=== PATIENT | female | born 1975 ===

== ENCOUNTER 2017-12-08 12:09 | Emergency (ER) | payer OTHER ==
[2017-12-08 12:16] VITALS: RESP 16; TEMP 98.5
--- NOTE | 2017-12-08 12:33 | ED PDOC ---
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 Patient denies any dysuria, vaginal bleeding or vaginal discharge. She denies concern for STDs. Patient states she has not menstruated in 2 months and missed the first time she had an irregular cycle. She has history of tubal ligation and denies concern for . PMD: none Past Medical History Reviewed: Historical Data, Nursing Documentation, Vital Signs Vital Signs: Last Vital Signs Temp 98.5 F 12/08/17 12:13 Pulse 75 12/08/17 12:13 Resp 16 12/08/17 12:13 BP 101/69 12/08/17 12:13 Pulse Ox 97 12/08/17 13:39 - Medical History PMH: No Chronic Diseases - Surgical History Other surgeries: tubal ligation - Family History Family History: States: Unknown Family Hx - Living Arrangements Living Arrangements: With Family - Social History Current smoker - smoking cessation education provided: No Alcohol: None Drugs: Denies - Home Medications Home Medications: Ambulatory Orders Medication Instructions Recorded Cyclobenzaprine [Cyclobenzaprine 10 mg PO BID #14 tab 05/23/16 HCl] Ibuprofen [Motrin] 400 mg PO Q6 #30 tab 05/23/16 Ibuprofen [Motrin Tab] 800 mg PO Q8 PRN #20 tab 12/08/17 - Allergies Allergies/Adverse Reactions: Allergies Allergy/AdvReac Type Severity Reaction Status Date / Time No Known Allergies Allergy Verified 12/08/17 12:13 Review of Systems ROS Statement: Except As Marked, All Systems Reviewed And Found Negative Constitutional: Negative for: Fever, Chills Cardiovascular: Negative for: Chest Pain Respiratory: Negative for: Cough Gastrointestinal: Negative for: Nausea, Vomiting Genitourinary Female: Positive for: Pelvic Pain. Negative for: Dysuria, Frequency, Incontinence, Hematuria, Vaginal Discharge, Vaginal Bleeding, Rash Physical Exam - Reviewed Nursing Documentation Reviewed: Yes Vital Signs Reviewed: Yes - Physical Exam Appears: Positive for: Well, Non-toxic, No Acute Distress Skin: Positive for: Normal Color. Negative for: Rash Eye Exam: Positive for: Normal appearance Cardiovascular/Chest: Positive for: Regular Rate, Rhythm Respiratory: Positive for: Normal Breath Sounds Gastrointestinal/Abdominal: Positive for: Soft. Negative for: Tenderness, Distended, Guarding, Rebound Extremity: Positive for: Normal ROM Neurologic/Psych: Positive for: Alert, Oriented - Laboratory Results Result Diagrams: 12/08/17 13:10 12/08/17 13:10 Urine POC: Negative Urine dip results: Negative for: Leukocyte Esterase, Blood, Nitrate, Ketones, Glucose, Bilirubin, Protein - ECG O2 Sat by Pulse Oximetry: 97 Pulse Ox Interpretation: Normal - Other Rad TV US X-Ray: Read By Radiologist X-Ray Interpretation: see below Medical Decision Making Medical Decision Makin-year-old female with pelvic pain for 1.5 months. Plan: Urine dip Urine test CBC CMP TV US Pain meds declined US: COMPARISON: None available. TECHNIQUE: Transvaginal FINDINGS: UTERUS: Measures 6.6 x 4.4 x 3.7 cm. Heterogeneous echotexture. Solitary discrete intramural uterine body fibroid, 0.8 x 1.2 x 1.2 cm. No other mass. ENDOMETRIUM : Measures 3 mm in diameter. Unremarkable. CERVIX: No cervical abnormality identified. RIGHT OVARY: Measures 2.6 x 1.8 x 1.7 cm. No solid mass. Normal flow. LEFT OVARY: Measures 1.4 x 1.6 x 1.0 cm. No solid mass. Normal flow. FREE FLUID: No significant free fluid noted. OTHER FINDINGS: None. IMPRESSION: Solitary 1.2 cm uterine body fibroid. Otherwise unremarkable examination. Patient is aware of diagnostic testing results. Prescription given for Motrin. Patient was referred to women's clinic for follow up. Disposition - Clinical Impression Clinical Impression: Fibroid - Patient ED Disposition Is Patient to be Admitted: No Counseled Patient/Family Regarding: Studies Performed, Diagnosis, Need For Followup, Rx Given - Disposition Referrals: [facility] [Outside] Disposition: Routine/Home Disposition Time: 16:56 Condition: STABLE Additional Instructions: Take prescription meds as directed as needed for pain. Follow-up with women's clinic in 2-3 days Prescriptions: Ibuprofen [Motrin Tab] 800 mg PO Q8 PRN #20 tab PRN Reason: Pain, Moderate (4-7) Instructions: Uterine Fibroids Forms: [employer] [place] ([employer]), [facility] ED School/Work Excuse Print Language: BULGARIAN Results - Lab Results Lab Results: 12/08/17 12/08/17 12/08/17 13:28 13:10 13:10 WBC 5.5 RBC 4.14 Hgb 12.7 Hct 37.4 MCV 90.2 MCH 30.7 MCHC 34.0 RDW 13.2 Plt Count 274 MPV 7.9 Neut % (Auto) 48.4 L Lymph % (Auto) 37.7 [place] % (Auto) 10.4 H Eos % (Auto) 2.6 Baso % (Auto) 0.9 Neut # (Auto) 2.6 Lymph # (Auto) 2.1 [place] # (Auto) 0.6 Eos # (Auto) 0.1 Baso # (Auto) 0.0 Sodium 140 Potassium 4.6 Chloride 105 Carbon Dioxide 30 Anion Gap 10 BUN 9 Creatinine 0.7 Est GFR ( Amer) > 60 Est GFR (Non-Af Amer) > 60 Random Glucose 100 Calcium 10.0 Total Bilirubin 0.4 AST 32 ALT 29 Alkaline Phosphatase 44 Total Protein 8.1 Albumin 4.3 Globulin 3.8 Albumin/Globulin Ratio 1.1 Urine Color Yellow Urine Clarity Slighty-cloudy Urine pH 5.0 Ur Specific [place] 1.019 Urine Protein Negative Urine Glucose (UA) Neg Urine Ketones Negative Urine Blood Negative Urine Nitrate Negative Urine Bilirubin Negative Urine Urobilinogen 0.2-1.0 Ur Leukocyte Esterase Neg Urine RBC (Auto) 2 Urine Microscopic WBC 1 Ur Squamous Epith Cells 1
[2017-12-08 13:29] LABS: BASO % 0.9 % (0.0-2.0); EOS # 0.1 K/uL (0.0-0.7); EOS % 2.6 % (0.0-4.0); HEMOGLOBIN 12.7 g/dL (12.0-16.0); LYMPH # 2.1 K/uL (1.0-4.3); LYMPH % 37.7 % (20.0-40.0); MEAN CELL VOLUME 90.2 fl (81.0-99.0); MEAN CORPUSCULAR HEMOGLOBIN 30.7 pg (27.0-31.0); MEAN PLATELET VOLUME 7.9 fl (7.2-11.7); MONO # 0.6 K/uL (0.0-0.8); MONO % 10.4 % (0.0-10.0); NEUT # 2.6 K/uL (1.8-7.0); NEUT % 48.4 % (50.0-75.0); RBC 4.14 Mil/uL (3.80-5.20); RED CELL DISTRIBUTION WIDTH 13.2 % (11.5-14.5); WHITE BLOOD COUNT 5.5 K/uL (4.8-10.8)
[2017-12-08 13:38] LABS: ALB/GLOB RATIO 1.1 (1.0-2.1); ALBUMIN 4.3 g/dL (3.5-5.0); ALT/SGPT 29 U/L (9-52); AST/SGOT 32 U/L (14-36); BLOOD UREA NITROGEN 9 mg/dl (7-17); GFR NON-AFRICAN AMERICAN > 60
[2017-12-08 13:39] LABS: SQUAMOUS EPITHIAL 1 /hpf (0-5); URINE BILIRUBIN NEGATIVE (NEGATIVE); URINE BLOOD NEGATIVE (NEGATIVE); URINE CLARITY SLIGHTY-CLOUDY (Clear); URINE COLOR YELLOW (YELLOW); URINE GLUCOSE (UA) NEG (Normal); URINE LEUKOCYTE ESTERASE NEG Leu/uL (Negative); URINE PROTEIN NEGATIVE (NEGATIVE); URINE UROBILINOGEN 0.2-1.0 mg/dL (0.2-1.0)
--- NOTE | 2017-12-08 16:54 | US ---
Date of service: 12/08/2017 HISTORY: pelvic pain for 1 month COMPARISON: None available. TECHNIQUE: Transvaginal FINDINGS: UTERUS: Measures 6.6 x 4.4 x 3.7 cm. Heterogeneous echotexture. Solitary discrete intramural uterine body fibroid, 0.8 x 1.2 x 1.2 cm. No other mass. ENDOMETRIUM: Measures 3 mm in diameter. Unremarkable. CERVIX: No cervical abnormality identified. RIGHT OVARY: Measures 2.6 x 1.8 x 1.7 cm. No solid mass. Normal flow. LEFT OVARY: Measures 1.4 x 1.6 x 1.0 cm. No solid mass. Normal flow. FREE FLUID: No significant free fluid noted. OTHER FINDINGS: None. IMPRESSION: Solitary 1.2 cm uterine body fibroid. Otherwise unremarkable examination.
[2017-12-08 17:14] VITALS: BP 126/62; PULSE 69
[2017-12-08 17:18] VITALS: O2SAT 97
== END 2017-12-08 18:07 | disposition home or self-care (01) ==
LOC: H.ER 12:09
DX: D25.9 Leiomyoma of uterus, unspecified (principal)

== ENCOUNTER 2018-09-06 17:03 | Emergency (ER) | payer OTHER ==
[2018-09-06 17:03] VITALS: BMI 25.8
[2018-09-06 17:30] VITALS: BP 101/68; PULSE 89; RESP 16; TEMP 98; O2SAT 97
== END 2018-09-06 20:02 | disposition left against medical advice (07) ==
LOC: H.ER 17:03
DX: Z02.89 Encounter for other administrative examinations (principal)